=== PATIENT | female | born 1965 | race Caucasian/White ===

== ENCOUNTER 2016-08-25 10:09 | Emergency (ER) | payer OTHER ==
[2016-08-25] MEDS ORDERED: SODIUM CHLORIDE 1,000 ML IV STA ×2 (10:32→12:07)
[2016-08-25 10:33] VITALS: BP 133/96; PULSE 77; TEMP 98.2; BMI 27.0
[2016-08-25 11:19] LABS: BASOPHIL 0.6 % (0-2.0); EOSINOPHIL 1.2 % (0-4.5); MCH 26.2 pg (25.7-33.7); MCHC 32.4 g/dl (32.0-36.0); MEAN CELL VOLUME 80.8 fl (80-96); MEAN PLT VOLUME 7.2 fl (7.5-11.1); NEUTROPHILS 70.3 % (42.8-82.8); PLATELET COUNT 367 K/MM3 (134-434); WHITE BLOOD COUNT 6.6 K/mm3 (4.0-10.0)
[2016-08-25 11:43] LABS: ALBUMIN 4.3 g/dl (3.4-5.0); ANION GAP 11 (8-16); CALCIUM 9.5 mg/dL (8.5-10.1); CO2 23 mmol/L (21-32); CREATININE 0.7 mg/dL (0.55-1.02); GLUCOSE,RANDOM 91 mg/dL (74-106); SGOT/AST 30 U/L (15-37); SGPT/ALT 34 U/L (12-78)
[2016-08-25 11:45] LABS: ALK PHOS 113 U/L (45-117); BILIRUBIN,TOTAL 0.3 mg/dL (0.2-1.0); TOT PROT 8.2 g/dl (6.4-8.2)
[2016-08-25 11:56] LABS: URINE APPEARANCE CLEAR; URINE BILIRUBIN NEGATIVE (NEGATIVE); URINE BLOOD NEGATIVE (NEGATIVE); URINE COLOR STRAW; URINE GLUCOSE (UA) NEGATIVE (NEGATIVE); URINE KETONE NEGATIVE (NEGATIVE); URINE NITRITE NEGATIVE (NEGATIVE); URINE PROTEIN NEGATIVE (NEGATIVE); URINE UROBILINOGEN NEGATIVE E.U./dl (0.2-1.0)
--- NOTE | 2016-08-25 11:57 | PDOC ---
[id number] 08/25/16 10:22 08/25/16 10:22 08/25/16 10:22 08/25/16 10:22 08/25/16 10:22 - Physical Exam Comments: 08/25/16 11:57 The patient was examined by YADIEL Jang under my direct supervision. I personally evaluated the patient. I concur with the above findings and the plan of care. ED Treatment Course - LABORATORY CBC & Chemistry Diagram: 08/25/16 11:03 08/25/16 11:03 - ADDITIONAL ORDERS Additional order review: Laboratory Results 08/25/16 08/25/16 11:03 11:03 Sodium 131 L Potassium 4.5 Chloride 97 L Carbon Dioxide 23 Anion Gap 11 BUN 4 L D Creatinine 0.7 Creat Clearance w eGFR > 60 Random Glucose 91 Calcium 9.5 Magnesium 2.1 Total Bilirubin 0.3 D AST 30 D ALT 34 D Alkaline Phosphatase 113 Total Protein 8.2 Albumin 4.3 08/25/16 11:03 RBC 4.74 MCV 80.8 MCHC 32.4 RDW 14.0 MPV 7.2 L Neutrophils % 70.3 Lymphocytes % 21.5 Monocytes % 6.4 Eosinophils % 1.2 D Basophils % 0.6 - Medications Given in the ED: ED Medications Discontinued Medications Generic Name Dose Route Start Last Admin Trade Name Crowq PRN Reason Stop Dose Admin Sodium Chloride 1,000 mls @ 1,000 mls/hr 08/25/16 10:32 08/25/16 10:35 Normal Saline - IV 08/25/16 11:31 1,000 mls/hr [facility] STA Administration *DC/Admit/Observation/Transfer Diagnosis at time of Disposition: Hyponatremia, Alcohol use, Bronchitis - Discharge Dispostion Disposition: HOME Condition at time of disposition: Good - Prescriptions Prescriptions: Azithromycin [Zithromax Tri-Lavon (3 DAYS) -] 500 mg PO DAILY #3 tablet - Referrals Referrals: Emanuel Delgado MD [Primary Care Provider] - - Patient Instructions Printed Discharge Instructions: DI for Acute Bronchitis, DI for Hyponatremia Additional Instructions: Take Antibiotics as prescribed and follow-up with your PCP and orthopedist as scheduled. Please drink plenty of fluids and avoid alcohol use as this may cause worsening of symptoms.
[2016-08-25 11:59] LABS: URINE LEUK ESTERASE 1+ (NEGATIVE)
[2016-08-25 12:01] LABS: URINE HYALINE CAST 1 /lpf; URINE MUCUS RARE; URINE RBC 1 /hpf (0-3); URINE WBC 2 /hpf (3-5)
--- NOTE | 2016-08-25 12:32 | PDOC ---
History of Present Illness - General Chief Complaint: Weakness Stated Complaint: WEAKNESS/DIZZY/POSSIBLE FEVER Time Seen by Provider: 08/25/16 10:14 History Source: Patient Exam Limitations: No Limitations - History of Present Illness Initial Comments: 08/25/16 11:25 50-year-old female presents the ED with complaints of decreased appetite, generalized weakness, dry cough, and chills for the past 2 days. Patient denies urinary complaints, difficulty breathing, shortness of breath, chest pain, sore throat, headache, abdominal pain, nausea , dysuria, or diarrhea. Patient states history of UTI last year but has no urinary complaints. Patient had a total knee replacement done on July 26 that went uneventful went to rehabilitation and was sent home on the . Patient states since the surgery has not been able to bend leg and feels very anxious to the fact that she may need a second surgery. Patient receives home physical therapy presently and feels it's not helping. Patient's eye redness at the surgical site, increased pain to surgical site but states swelling has not decreased since rehabilitation. Patient has a follow-up appointment next week with her orthopedist. patient has been taking oxycodonefor pain with good relief. Timing/Duration: constant Associated Symptoms: reports: cough, fever/chills, loss of appetite, malaise, weakness Past History - Past Medical History Allergies/Adverse Reactions: Allergies Allergy/AdvReac Type Severity Reaction Status Date / Time No Known Allergies Allergy Verified 08/25/16 10:33 Home Medications: Ambulatory Orders Fluoxetine HCl [Prozac] 10 mg PO DAILY 02/11/15 Azithromycin [Zithromax Tri-Lavon (3 DAYS) -] 500 mg PO DAILY #3 tablet 08/25/16 Clonazepam [KlonoPIN] 0.5 mg PO DAILY 08/25/16 Psychiatric Problems: Yes (Anxiety, BIPOLAR) - Reproductive History LMP Normal: Yes Is Patient Now?: No - Immunization History Immunization Up to Date: Yes - Psycho/Social/Smoking Cessation Hx Anxiety: No Suicidal Ideation: No Smoking Status: Yes Smoking History: Current every day smoker Number of Cigarettes Smoked Daily: 3 Information on smoking cessation initiated: No Hx Alcohol Use: Yes (Beer) Drug/Substance Use Hx: Yes Substance Use Type: Alcohol (daily) Patient Lives Alone: No Lives with/in: children Review of Systems - Review of Systems Able to Perform ROS?: Yes Constitutional: Yes: Chills, Loss of Appetite, Malaise HEENTM: No: Symptoms Reported Respiratory: Yes: Cough. No: Orthopnea, SOB with Exertion, Wheezing, Productive cough Cardiac (ROS): No: Symptoms Reported ABD/GI: Yes: Poor Appetite, Poor Fluid Intake. No: Nausea : No: Symptoms Reported Musculoskeletal: Yes: Joint Pain (mild left knee) Integumentary: No: Symptoms Reported Neurological: No: Symptoms reported Endocrine: No: Symptoms Reported *Physical Exam - Vital Signs Last Vital Signs Temp Pulse Resp BP Pulse Ox 98.2 F 77 18 133/96 99 08/25/16 10:22 08/25/16 10:22 08/25/16 10:22 08/25/16 10:22 08/25/16 10:22 - Physical Exam General Appearance: Yes: Nourished, Appropriately Dressed, Intoxicated. No: Apparent Distress, Disheveled HEENT: positive: EOMI, [place]. negative: Pale Conjunctivae Neck: positive: Supple Respiratory/Chest: positive: Lungs Clear, Normal Breath Sounds. negative: Respiratory Distress, Accessory Muscle Use Cardiovascular: positive: Regular Rhythm, Regular Rate. negative: Murmur Gastrointestinal/Abdominal: positive: Soft. negative: Tenderness Extremity: positive: Normal Capillary Refill, Normal Inspection, Swelling (mild over left knee incision). negative: Normal Range of Motion (unable to flex left knee), Tender, Pedal Edema, Erythema Integumentary: positive: Normal Color, Warm, Moist Neurologic: negative: Normal Mood/Affect (anxious and crying) ED Treatment Course - LABORATORY CBC & Chemistry Diagram: 08/25/16 11:03 08/25/16 11:03 - ADDITIONAL ORDERS Additional order review: Laboratory Results 08/25/16 08/25/16 08/25/16 11:42 11:03 11:03 Sodium Potassium Chloride Carbon Dioxide Anion Gap BUN Creatinine Creat Clearance w eGFR Random Glucose Lactic Acid 1.976 Calcium Magnesium 2.1 Total Bilirubin AST ALT Alkaline Phosphatase Total Protein Albumin Urine Color Straw Urine Appearance Clear Urine pH 5.0 Ur Specific [place] 1.009 Urine Protein Negative Urine Glucose (UA) Negative Urine Ketones Negative Urine Blood Negative Urine Nitrite Negative Urine Bilirubin Negative Urine Urobilinogen Negative Ur Leukocyte Esterase 1+ H Urine RBC 1 Urine WBC 2 Ur Epithelial Cells Rare Hyaline Casts 1 Urine Mucus Rare Urine HCG, Qual 08/25/16 08/25/16 11:03 10:32 Sodium 131 L Potassium 4.5 Chloride 97 L Carbon Dioxide 23 Anion Gap 11 BUN 4 L D Creatinine 0.7 Creat Clearance w eGFR > 60 Random Glucose 91 Lactic Acid Calcium 9.5 Magnesium Total Bilirubin 0.3 D AST 30 D ALT 34 D Alkaline Phosphatase 113 Total Protein 8.2 Albumin 4.3 Urine Color Urine Appearance Urine pH Ur Specific [place] Urine Protein Urine Glucose (UA) Urine Ketones Urine Blood Urine Nitrite Urine Bilirubin Urine Urobilinogen Ur Leukocyte Esterase Urine RBC Urine WBC Ur Epithelial Cells Hyaline Casts Urine Mucus Urine HCG, Qual Negative 08/25/16 11:03 Influenza Types A,B Antigen (DAVION) - Final Nasopharyngeal Swab - Final 08/25/16 11:03 RBC 4.74 MCV 80.8 MCHC 32.4 RDW 14.0 MPV 7.2 L Neutrophils % 70.3 Lymphocytes % 21.5 Monocytes % 6.4 Eosinophils % 1.2 D Basophils % 0.6 - RADIOLOGY Radiology Studies Ordered: Category Date Time Status CHEST X-RAY PORTABLE* [RAD] Stat Radiology 08/25/16 10:31 Ordered KNEE 3 POS-LEFT [RAD] Stat Radiology 08/25/16 10:32 Ordered - Medications Given in the ED: ED Medications Discontinued Medications Generic Name Dose Route Start Last Admin Trade Name Freq PRN Reason Stop Dose Admin Sodium Chloride 1,000 mls @ 1,000 mls/hr 08/25/16 10:32 08/25/16 10:35 Normal Saline - IV 08/25/16 11:31 [facility]000 [facility]ls[facility]hr [facility] Administration Medical Decision Making - Medical Decision Making 08/25/16 11:35 Patient here with complaints of cough, increased weakness, decreased appetite, and chills with a past 2 days. Patient history of bipolar and anxiety with recent total knee replacement last month which she's been taking oxycodone for an receiving physical therapy at home. Patient also states heavy alcohol use and arrives here intoxicated. Patient ordered for septic workup including influenza testing, magnesium level, and knee x-ray. 08/25/16 12:37 Laboratory Tests 08/25/16 08/25/16 08/25/16 10:32 11:03 11:03 WBC 6.6 D Hgb 12.4 D Hct 38.3 Plt Count 367 Neutrophils % 70.3 Sodium 131 L Potassium 4.5 Chloride 97 L Carbon Dioxide 23 Anion Gap 11 BUN 4 L D Creatinine 0.7 Random Glucose 91 Lactic Acid Calcium 9.5 Magnesium AST 30 D ALT 34 D Urine Ketones Urine Nitrite Ur Leukocyte Esterase Urine WBC Urine HCG, Qual Negative 08/25/16 08/25/16 08/25/16 11:03 11:03 11:42 WBC Hgb Hct Plt Count Neutrophils % Sodium Potassium Chloride Carbon Dioxide Anion Gap BUN Creatinine Random Glucose Lactic Acid 1.976 Calcium Magnesium 2.1 AST ALT Urine Ketones Negative Urine Nitrite Negative Ur Leukocyte Esterase 1+ H Urine WBC 2 Urine HCG, Qual influenza swab negative. Patient pending x-ray. Patient ordered a second bag of IV fluids. 08/25/16 13:13 X-ray shows no joint joint effusion with no signs of fracture or loosening. Chest x-ray shows weakens patient with no atelectasis changes at the left base. Since patient is a daily smoker I will send patient home with a prescription for azithromycin to treat for bronchitis. patient otherwise needs to follow-up with orthopedist next week as scheduled. Patient also recommended to avoid alcohol and opiate intake. Patient also recommended drink plenty of fluids . *DC/Admit/Observation/Transfer Diagnosis at time of Disposition: Hyponatremia, Alcohol use, Bronchitis - Discharge Dispostion Disposition: HOME Condition at time of disposition: Good - Referrals Referrals: Emanuel Delgado MD [Primary Care Provider] - - Patient Instructions Printed Discharge Instructions: DI for Hyponatremia, DI for Acute Bronchitis Additional Instructions: Take Antibiotics as prescribed and follow-up with your PCP and orthopedist as scheduled. Please drink plenty of fluids and avoid alcohol use as this may cause worsening of symptoms.
== END 2016-08-25 14:18 | disposition home or self-care (01) ==
LOC: JER 10:09
PROC: 3E0337Z Introduction of Electrolytic and Water Balance Substance into Peripheral Vein, Percutaneous Approach (ICD-10-PCS; principal; 2016-08-25)
DX: J20.9 Acute bronchitis, unspecified (principal); E87.1 Hypo-osmolality and hyponatremia; F10.10 Alcohol abuse, uncomplicated; Z96.652 Presence of left artificial knee joint; F17.210 Nicotine dependence, cigarettes, uncomplicated
CPT/HCPCS: 36415; 71010-TC; 73562-TC-LT; 80053; 81003; 81015; 83605; 83735; 84703; 85025; 87040; 87086; 87804; 96360; 96361; 99282-25

== ENCOUNTER 2018-10-03 13:56 | Observation (INO) | payer OTHER ==
--- NOTE | 2018-10-03 15:28 | PDOC ---
History of Present Illness - General Chief Complaint: Migraine Headache Stated Complaint: Migraine Headache History Source: Patient Exam Limitations: No Limitations - History of Present Illness Initial Comments: 10/03/18 15:25 52 yo F with a hx of bipolar disorder (on seroquel, clonipine), gastritis, and migraines (last headache childhood) presents to the emergency department with headache located in the frontal sinus and behind eyes since Saturday. Per the patient, she states it was sudden onset, worse headache of her life initially, 04/30, without radiation, and had no associative symptoms with negligible relief with motrin. She is uncertain if this is similar quality to her migraines in the past. Per the patient, she said it got better , and then worsened today. Denies the following: fever, chills, neck stiffness, trauma , visual changes, ears/nose/throat pain, chest pain, SOB, nausea, vomiting, hematuria, dysuria, abdominal pain, leg pain/swelling, and hematochezia. Shx: None Meds: Seroquel, clonipine, and prilosec Allergies: NKDA Social: Denies tobacco, alcohol, and substance abuse. Past History - Past Medical History Allergies/Adverse Reactions: Allergies Allergy/AdvReac Type Severity Reaction Status Date / Time No Known Allergies Allergy Verified 10/03/18 14:17 Home Medications: Ambulatory Orders Fluoxetine HCl [Prozac] 10 mg PO DAILY 02/11/15 clonazePAM [KlonoPIN] 0.5 mg PO DAILY 08/25/16 COPD: No Psychiatric Problems: Yes (Anxiety, BIPOLAR) - Immunization History Immunization Up to Date: Yes - Suicide/Smoking/Psychosocial Hx Smoking Status: Yes Smoking History: Never smoked Number of Cigarettes Smoked Daily: 3 Hx Alcohol Use: No Drug/Substance Use Hx: No Substance Use Type: Alcohol (daily) Review of Systems - Review of Systems Able to Perform ROS?: Yes Is the patient limited Tajik proficient: No Constitutional: No: Chills, Diaphoresis, Fever, Weakness HEENTM: No: Eye Pain, Ear Pain, Nose Pain, Throat Pain Respiratory: No: Cough, Shortness of Breath Cardiac (ROS): No: Chest Pain, Lightheadedness, Palpitations, Syncope, Chest Tightness ABD/GI: No: Constipated, Diarrhea, Nausea, Rectal Bleeding, Vomiting, Tarry Stools : No: Burning, Dysuria, Hematuria Musculoskeletal: No: Back Pain, Joint Pain, Neck Pain Integumentary: No: Bruising, Erythema, Rash Neurological: Yes: Headache. No: Numbness, Tingling, Tremors, Ataxia, Dizziness Psychiatric: No: Stressors Endocrine: No: Unexplained Weight Gain Hematologic/Lymphatic: No: Anemia *Physical Exam - Vital Signs Last Vital Signs Temp Pulse Resp BP Pulse Ox 97.9 F 65 17 159/102 H 98 10/03/18 14:17 10/03/18 14:17 10/03/18 14:17 10/03/18 14:17 10/03/18 14:17 - Physical Exam General Appearance: Yes: Nourished, Appropriately Dressed, Obese. No: Apparent Distress HEENT: positive: EOMI, [place], Normal Voice, Symmetrical, Pharynx Normal, Hearing Grossly Normal. negative: Pale Conjunctivae, Scleral Icterus (R), Scleral Icterus (L), Muffled/Hoarse voice, Pharyngeal Erythema, Tonsillar Exudate, Tonsillar Erythema, Excessive drooling Neck: positive: Trachea midline, Supple. negative: Tender, Lymphadenopathy (R) , Lymphadenopathy (L), Tender lateral, Tender midline Respiratory/Chest: positive: Lungs Clear, Normal Breath Sounds. negative: Chest Tender, Respiratory Distress, Accessory Muscle Use, Crackles, Rales, Rhonchi, Stridor, Wheezing, Hyperresonant Cardiovascular: positive: Regular Rhythm, Regular Rate, S1, S2. negative: Systolic Murmur Gastrointestinal/Abdominal: positive: Normal Bowel Sounds, Flat, Soft. negative : Tender, Distended, Guarding, Rebound, Tenderness Lymphatic: negative: Adenopathy Musculoskeletal: positive: Normal Inspection. negative: CVA Tenderness, Vertebral Tenderness Extremity: positive: Normal Capillary Refill, Normal Inspection, Normal Range of Motion. negative: Tender Integumentary: positive: Normal Color, Dry, Warm Neurologic: positive: electroencephalograph technician II-XII NML intact, Fully Oriented, Alert, Normal Mood/ Affect, Normal Response, Motor Strength 5/5, Sensory Deficit (decreased sensation on the right L2 distribution). negative: Facial Droop, Numbness, Finger to Nose Moderate Sedation - Procedure Monitoring Vital Signs: Procedure Monitoring Vital Signs Temperature 97.9 F 10/03/18 14:17 Pulse Rate 65 10/03/18 14:17 Respiratory Rate 17 10/03/18 14:17 Blood Pressure 159/102 H 10/03/18 14:17 O2 Sat by Pulse Oximetry (%) 98 10/03/18 14:17 ED Treatment Course - LABORATORY CBC & Chemistry Diagram: 10/04/18 06:20 10/04/18 05:20 Medical Decision Making - Medical Decision Making 10/03/18 20:22 52 yo F with a hx of bipolar disorder (on seroquel, clonipine), gastritis, and migraines (last headache childhood) presents to the emergency department with headache located in the frontal sinus and behind eyes since Saturday. In addition, complains of weakness. Initial vitals: Initial Vital Signs Temp Pulse Resp BP Pulse Ox 97.9 F 65 17 159/102 H 98 10/03/18 14:17 10/03/18 14:17 10/03/18 14:17 10/03/18 14:17 10/03/18 14:17 Work up": ddx: headache (migraine vs tension vs cluster vs intracranial mass) vs electrolyte abnormality Laboratory Tests 10/03/18 10/03/18 10/03/18 16:37 16:37 16:37 WBC 7.8 RBC 4.83 Hgb 14.0 Hct 41.2 MCV 85.4 MCH 29.0 D MCHC 34.0 RDW 14.5 Plt Count 303 MPV 8.2 D Absolute Neuts (auto) 4.8 Neutrophils % 61.1 Lymphocytes % 27.6 D Monocytes % 8.8 Eosinophils % 1.5 Basophils % 1.0 Nucleated RBC % 0 Sodium 125 L Potassium 4.4 Chloride 94 L Carbon Dioxide 23 Anion Gap 9 BUN 6 L Creatinine 0.8 Creat Clearance w eGFR 75.62 Random Glucose 94 Calcium 9.5 Total Bilirubin 0.6 AST 145 H ALT 118 H Alkaline Phosphatase 127 H Total Protein 8.4 H Albumin 4.4 Urine Color Colorless Urine Appearance Clear Urine pH 6.0 Ur Specific [place] 1.002 L Urine Protein Negative Urine Glucose (UA) Negative Urine Ketones Trace H Urine Blood Negative Urine Nitrite Negative Urine Bilirubin Negative Urine Urobilinogen Negative Ur Leukocyte Esterase Negative Urine HCG, Qual Negative CT head was negative for acute intracranial process. Patient less likely has subarachnoid hemorrhage given atypical features. labs show hyponatremia. lfts are elevated with elevated ast, alt, and alk phos without elevation in bilirubin (patient denies liver disease, but recently taking an antibiotic without knowing which). UA negative. Patient will be admitted for hyponatremia. Dispo: Admit *DC/Admit/Observation/Transfer Diagnosis at time of Disposition: Hyponatremia - Referrals - Patient Instructions - Post Discharge Activity
[2018-10-03] MEDS ORDERED: METOCLOPRAMIDE HCL INJECTION 10 MG/2 ML VIAL IVPB ONE (16:53)
[2018-10-03] MEDS ORDERED: SODIUM CHLORIDE 1,000 ML IV STA (16:53)
[2018-10-03] MEDS ORDERED: ACETAMINOPHEN 1000 MG/100 ML VIAL (NON FORMULARY) IVPB ONE (16:53)
[2018-10-03] MEDS ORDERED: METOCLOPRAMIDE HCL INJECTION 10 MG/2 ML VIAL ONE (17:09)
[2018-10-03] MEDS ORDERED: ACETAMINOPHEN INJECTION 100 ML IVPB ONE (17:10)
[2018-10-03 17:16] LABS: EOS % 1.5 % (0-4.5); HEMATOCRIT 41.2 % (32.4-45.2); LYMPH % 27.6 % (8-40); MEAN CELL VOLUME 85.4 fl (80-96); MEAN PLT VOLUME 8.2 fl (7.5-11.1); MONO % 8.8 % (3.8-10.2); NEUT % 61.1 % (42.8-82.8); PLATELET COUNT 303 K/MM3 (134-434); RBC 4.83 M/mm3 (3.60-5.2); RDW 14.5 % (11.6-15.6); WHITE BLOOD COUNT 7.8 K/mm3 (4.0-10.0)
[2018-10-03 17:22] LABS: URINE APPEARANCE CLEAR; URINE BILIRUBIN NEGATIVE (<2.0 mg/dL); URINE COLOR COLORLESS; URINE GLUCOSE (UA) NEGATIVE (NEGATIVE); URINE KETONE TRACE (NEGATIVE); URINE LEUK ESTERASE NEGATIVE (NEGATIVE); URINE NITRITE NEGATIVE (NEGATIVE); URINE PROTEIN NEGATIVE (NEGATIVE); URINE UROBILINOGEN NEGATIVE mg/dL (0.2-1.0)
[2018-10-03 17:23] LABS: HCG,QUALITATIVE URINE Negative
[2018-10-03 17:42] LABS: ALBUMIN 4.4 g/dl (3.4-5.0); ALK PHOS 127 U/L (45-117); ANION GAP 9 MMOL/L (8-16); BILIRUBIN,TOTAL 0.6 mg/dL (0.2-1); BLOOD UREA NITROGEN 6 mg/dL (7-18); CALCIUM 9.5 mg/dL (8.5-10.1); CHLORIDE 94 mmol/L (98-107); CO2 23 mmol/L (21-32); CREATININE 0.8 mg/dL (0.55-1.3); GLUCOSE,RANDOM 94 mg/dL (74-106); POTASSIUM 4.4 mmol/L (3.5-5.1); SGOT/AST 145 U/L (15-37); SGPT/ALT 118 U/L (13-61); SODIUM 125 mmol/L (136-145); TOT PROT 8.4 g/dl (6.4-8.2)
--- NOTE | 2018-10-03 21:32 | HP ---
CHIEF COMPLAINT: headache PCP: Delgado HISTORY OF PRESENT ILLNESS: 52 yo woman complaining of headache since this past Wed. Head is diffuse and also worse behind he eyes. Denied any photophobia, or phonophobia. she denied any nausea or vomiting. No fevers or chills reported. Patient denied starting any new medications recently. Head CT in ER was negative for any acute insults. ER course was notable for: (1) head CT (2) cxr (3) Recent Travel: no PAST MEDICAL HISTORY: bipolar disorder (on seroquel, clonipine), gastritis, and migraines PAST SURGICAL HISTORY: no Social History: Smoking: no Alcohol:no Drugs: no Family History: none Allergies No Known Allergies Allergy (Verified 10/03/18 14:17) HOME MEDICATIONS: Home Medications Medication Instructions Recorded Fluoxetine HCl [Prozac] 10 mg PO DAILY 02/11/15 Azithromycin [Zithromax Tri-Lavon (3 500 mg PO DAILY #3 tablet 08/25/16 DAYS) -] clonazePAM [KlonoPIN] 0.5 mg PO DAILY 08/25/16 REVIEW OF SYSTEMS CONSTITUTIONAL: Absent: fever, chills, diaphoresis, loss of appetite, weight change present- , generalized weakness, malaise HEENT: Absent: rhinorrhea, nasal congestion, throat pain, throat swelling, difficulty swallowing, mouth swelling, ear pain, eye pain, visual changes CARDIOVASCULAR: Absent: chest pain, syncope, palpitations, irregular heart rate, lightheadedness , peripheral edema RESPIRATORY: Absent: cough, shortness of breath, dyspnea with exertion, orthopnea, wheezing, stridor, hemoptysis GASTROINTESTINAL: Absent: abdominal pain, abdominal distension, nausea, vomiting, diarrhea, constipation, melena, hematochezia GENITOURINARY: Absent: dysuria, frequency, urgency, hesitancy, hematuria, flank pain, genital pain MUSCULOSKELETAL: Absent: myalgia, arthralgia, joint swelling, back pain, neck pain SKIN: Absent: rash, itching, pallor HEMATOLOGIC/IMMUNOLOGIC: Absent: easy bleeding, easy bruising, lymphadenopathy, frequent infections ENDOCRINE: Absent: unexplained weight gain, unexplained weight loss, heat intolerance, cold intolerance NEUROLOGIC: Absent: , focal weakness or paresthesias, dizziness, unsteady gait, seizure, mental status changes, bladder or bowel incontinence present- headache PSYCHIATRIC: Absent: anxiety, depression, suicidal or homicidal ideation, hallucinations. PHYSICAL EXAMINATION Vital Signs - 24 hr 10/03/18 14:17 Temperature 97.9 F Pulse Rate 65 Respiratory 17 Rate Blood Pressure 159/102 H O2 Sat by Pulse 98 Oximetry (%) GENERAL: Awake, alert, and fully oriented, in no acute distress. HEAD: Normal with no signs of trauma. EYES: Pupils equal, round and reactive to light, extraocular movements intact, sclera anicteric, conjunctiva clear. No lid lag. EARS, NOSE, THROAT: Ears normal, nares patent, oropharynx clear without exudates. Moist mucous membranes. NECK: Normal range of motion, supple without lymphadenopathy, JVD, or masses. LUNGS: Breath sounds equal, clear to auscultation bilaterally. No wheezes, and no crackles. No accessory muscle use. HEART: Regular rate and rhythm, normal S1 and S2 without murmur, rub or gallop. ABDOMEN: Soft, nontender, not distended, normoactive bowel sounds, no guarding, no rebound, no masses. MUSCULOSKELETAL: Normal range of motion at all joints. No bony deformities or tenderness. No CVA tenderness. UPPER EXTREMITIES: 2+ pulses, warm, well-perfused. No cyanosis. No clubbing. No peripheral edema. LOWER EXTREMITIES: 2+ pulses, warm, well-perfused. No calf tenderness. No peripheral edema. NEUROLOGICAL: Cranial nerves II-XII intact. Normal speech. Normal gait. PSYCHIATRIC: Cooperative. Good eye contact. Appropriate mood and affect. SKIN: Warm, dry, normal turgor, no rashes or lesions noted, normal capillary refill. Laboratory Results - last 24 hr 10/03/18 10/03/18 10/03/18 16:37 16:37 16:37 WBC 7.8 RBC 4.83 Hgb 14.0 Hct 41.2 MCV 85.4 MCH 29.0 D MCHC 34.0 RDW 14.5 Plt Count 303 MPV 8.2 D Absolute Neuts (auto) 4.8 Neutrophils % 61.1 Lymphocytes % 27.6 D Monocytes % 8.8 Eosinophils % 1.5 Basophils % 1.0 Nucleated RBC % 0 Sodium 125 L Potassium 4.4 Chloride 94 L Carbon Dioxide 23 Anion Gap 9 BUN 6 L Creatinine 0.8 Creat Clearance w eGFR 75.62 Random Glucose 94 Calcium 9.5 Total Bilirubin 0.6 AST 145 H ALT 118 H Alkaline Phosphatase 127 H Total Protein 8.4 H Albumin 4.4 Urine Color Colorless Urine Appearance Clear Urine pH 6.0 Ur Specific [place] 1.002 L Urine Protein Negative Urine Glucose (UA) Negative Urine Ketones Trace H Urine Blood Negative Urine Nitrite Negative Urine Bilirubin Negative Urine Urobilinogen Negative Ur Leukocyte Esterase Negative Urine HCG, Qual Negative Head CT, cxr reviewed ASSESSMENT/PLAN: #Headache - likely related to patient's hyponatremia. Differential diagnosis includes migraine however less characteristic. -observation -naproxen 500mg po prn if headache #Hyponatremia - patient appears to be euvolemic. Possibly SIADH, may be related to psych meds that patient is taking. R/o Hypothryoidism. -observe -bed rest -fall precations -send urine osm -serum osm -tsh -hold seroquel for now (might cause SIADH) -monitor Na level -gentle IV fluid hydration- NS #Bipolar/depression? -hold seroquel temporarily -c/w fluoxetine -psych eval for med optimization #DVT ppx -he[facility]i sc Visit type - Emergency Visit Emergency Visit: Yes ED Registration Date: 10/03/18 Care time: The patient presented to the Emergency Department on the above date and was hospitalized for further evaluation of their emergent condition. - New Patient This patient is new to me today: Yes Date on this admission: 10/03/18 - Critical Care Critical Care patient: No
[2018-10-03] MEDS ORDERED: HEPARIN NA (PORCINE) 5,000 UNITS/ML 1ML VIAL ONE (22:22)
[2018-10-03] MEDS: SODIUM CHLORIDE 1,000 ML IV SCH (22:34)
[2018-10-03] MEDS: HEPARIN NA (PORCINE) 5,000 UNITS/ML 1ML VIAL SQ SCH (22:34)
--- NOTE | 2018-10-03 22:37 | PDOC ---
Attending Attestation - Resident Resident Name: Olman Medina - ED Attending Attestation I have performed the following: I have examined & evaluated the patient, The case was reviewed & discussed with the resident, I agree w/resident's findings & plan, Exceptions are as noted - HPI HPI: 10/03/18 22:39 The patient is a 52 year old female with a PMH of bipolar disorder (on seroquel , clonipine), gastritis, chronic back pain, and migraines in childhood who presents to the ER with a headache for the past 3 days. Patient describes the headache as frontal, gradual onset, with associated pressure behind her eyes, that is 10/10 in severity and worsened over the last days. She has been taking aleve at home for her headache with no improvement. Patient states this is the worst headache of her life. Patient also endorses left arm numbness that resolved at some point today and generalized weakness. Patient denies any visual changes. t reports having significant stressors at home. The patient denies chest pain, shortness of breath, and dizziness. Denies fever, chills, nausea, vomit, diarrhea and constipation. Denies dysuria, frequency, urgency and hematuria. Allergies: NKA Past surgical history: None reported. Social history: No reported alcohol, drugs or cigarette use. PCP: Dr. Emanuel Delgado - Physicial Exam PE: 10/03/18 18:20 GENERAL: Awake, alert, and fully oriented, in no acute distress watching TV, very comfortable appearing HEAD: No signs of trauma EYES: PERRLA, EOMI, sclera anicteric, conjunctiva clear ENT: Hearing grossly normal, nares patent, oropharynx clear without exudates. Moist mucosa NECK: Normal ROM, supple, no lymphadenopathy, JVD, or masses. No meningismus LUNGS: Breath sounds equal, clear to auscultation bilaterally. No wheezes, and no crackles HEART: Regular rate and rhythm, normal S1 and S2, no murmurs, rubs or gallops ABDOMEN: Soft, nontender, normoactive bowel sounds. No guarding, no rebound. No masses EXTREMITIES: Normal range of motion, no edema. No erythema, or tenderness BACK: No midline spinal tenderness in cervical/thoracic/lumbar region NEUROLOGICAL: Slurred speech (pt states she notices no change in her speech), cranial nerves intact, negative pronator drift, 5/5 strength in all 4 extremities, normal sensation to light touch in all 4 extremities, normal cerebellar exam, normal gait, normal tone SKIN: Warm, Dry, normal turgor, no rashes or lesions noted. - Medical Decision Making 10/03/18 18:43 52yo F presents to the ED with gradually worsening bifrontal headache and resolved numbness to UE. BP elevated, but remaining vitals wnl. Exam wnl, pt comfortable appearing with no meningismus and neuro intact. Possible atypical migraine vs tension ahumada vs CVA but much less likely. Unlikely SAH as ahumada of gradual onset, pt is well appearing, and neuro intact. CTH neg for infarction. Plan to treat ahumada, so far labs with hyponatremia to 125. Anticipate obs admission. Heart Score/ECG Review #1 10/03/18 22:51 EKG read and interpreted by me, NSR, rate 63, normal axis and intervals. No NELDA
[2018-10-03] MEDS ORDERED: ACETAMINOPHEN 325 MG TABLET (FP) PO PRN (22:42)
[2018-10-03] MEDS ORDERED: ACETAMINOPHEN 325 MG TABLET (FP) ONE (22:50)
[2018-10-03] MEDS ORDERED: NAPROXEN 500 MG TABLET (FP) PO PRN (23:09)
[2018-10-04] MEDS: SODIUM CHLORIDE 1,000 ML IV SCH (03:54)
[2018-10-04] MEDS ORDERED: NAPROXEN 500 MG TABLET (FP) PO ONE (04:01)
[2018-10-04 04:36] VITALS: BMI 32.9
[2018-10-04 07:40] LABS: ALBUMIN 4.2 g/dl (3.4-5.0); ALK PHOS 114 U/L (45-117); ANION GAP 8 MMOL/L (8-16); BILIRUBIN,TOTAL 0.6 mg/dL (0.2-1); BLOOD UREA NITROGEN 7 mg/dL (7-18); CALCIUM 8.5 mg/dL (8.5-10.1); CHLORIDE 105 mmol/L (98-107); CO2 22 mmol/L (21-32); CREATININE 0.8 mg/dL (0.55-1.3); GLUCOSE,RANDOM 86 mg/dL (74-106); POTASSIUM 3.9 mmol/L (3.5-5.1); SGOT/AST 128 U/L (15-37); SGPT/ALT 103 U/L (13-61); SODIUM 136 mmol/L (136-145); TOT PROT 7.6 g/dl (6.4-8.2)
[2018-10-04] MEDS ORDERED: PT OWN MED DRAWER 7, Y5N ONE (09:37)
[2018-10-04] MEDS: HEPARIN NA (PORCINE) 5,000 UNITS/ML 1ML VIAL SQ SCH (09:38)
[2018-10-04] MEDS ORDERED: clonazePAM 0.5 MG TABLET PO SCH (10:00)
[2018-10-04] MEDS ORDERED: FLUoxetine HCL 10 MG CAPSULE (FP) PO SCH (10:00)
[2018-10-04 10:41] LABS: HEMATOCRIT 36.9 % (32.4-45.2); HEMOGLOBIN 12.8 GM/dL (10.7-15.3); MCHC 34.6 g/dl (32.0-36.0); MEAN CELL VOLUME 86.5 fl (80-96); MEAN PLT VOLUME 8.6 fl (7.5-11.1); PLATELET COUNT 261 K/MM3 (134-434); RBC 4.27 M/mm3 (3.60-5.2); RDW 14.5 % (11.6-15.6)
--- NOTE | 2018-10-04 11:17 | DS ---
Physical Examination Vital Signs: Vital Signs Temperature 97.5 F L 10/04/18 05:00 Pulse Rate 58 L 10/04/18 05:00 Respiratory Rate 20 10/04/18 05:00 Blood Pressure 140/61 10/04/18 05:00 O2 Sat by Pulse Oximetry (%) 100 10/04/18 04:00 Findings/Remarks: sitting in chair -- watching tv feels well chart reviewed comfortable Constitutional: Yes: No Distress Eyes: Yes: Conjunctiva Clear Neck: Yes: Supple Cardiovascular: Yes: Regular Rate and Rhythm Respiratory: Yes: CTA Bilaterally Gastrointestinal: Yes: Soft Edema: No Neurological: Yes: Alert Psychiatric: Yes: Alert Labs: CBC, BMP 10/04/18 06:20 10/04/18 05:20 Discharge Summary Reason For Visit: HYPONATREMIA Hospital Course: 52 yo F with a hx of bipolar disorder (on seroquel, clonipine), gastritis, and migraines (last headache childhood) presents to the emergency department with headache located in the frontal sinus and behind eyes since Saturday. ct head -ve sodium normalized AST/ALT - Elevated u/s --fatty liver EKG- ok overall stable will d/c home I also added hepatitis panel-- pt do not have any clinical indications of acute hepatitis though-- likely due to fatty infiltration. Office records -- reviewed Not compliant pt Advised to come for f/u on regular basis f/u in office in 2 weeks Also advised to f/u with psych as advised Condition: Stable - Instructions Disposition: HOME - Home Medications Comprehensive Discharge Medication List: Ambulatory Orders Fluoxetine HCl [Prozac] 10 mg PO DAILY 02/11/15 clonazePAM [KlonoPIN] 0.5 mg PO DAILY 08/25/16
--- NOTE | 2018-10-04 13:15 | EKG ---
Test Reason : Blood Pressure : / mmHG Vent. Rate : 063 BPM Atrial Rate : 063 BPM P-R Int : 166 ms QRS Dur : 080 ms QT Int : 428 ms P-R-T Axes : 075 050 049 degrees QTc Int : 437 ms NORMAL SINUS RHYTHM POSSIBLE LEFT ATRIAL ENLARGEMENT BORDERLINE ECG WHEN COMPARED WITH ECG OF 28-SEP-1998 18:23, NO SIGNIFICANT CHANGE WAS FOUND Confirmed by MD ADDIS, RADHA ([id number]) on 10/04/2018 1:15:20 PM Referred By: Confirmed By:RADHA MANCINI MD
[2018-10-04 13:34] VITALS: BP 151/89; PULSE 66; TEMP 97.4
[2018-10-05 06:37] LABS: HEP.C VIRUS AB <0.1 s/co ratio (0.0-0.9)
== END 2018-10-04 14:41 | disposition home or self-care (01) ==
LOC: JER 13:56 → JERBED 18:46 → J7W 10-04 03:20
PROVIDERS: ADMIT Internal Medicine; ATTEND Internal Medicine
PROC: 3E033NZ Introduction of Analgesics, Hypnotics, Sedatives into Peripheral Vein, Percutaneous Approach (ICD-10-PCS; principal; 2018-10-03)
PROC: 3E0337Z Introduction of Electrolytic and Water Balance Substance into Peripheral Vein, Percutaneous Approach (ICD-10-PCS; 2018-10-03)
PROC: 3E033GC Introduction of Other Therapeutic Substance into Peripheral Vein, Percutaneous Approach (ICD-10-PCS; 2018-10-03)
PROC: 3E013GC Introduction of Other Therapeutic Substance into Subcutaneous Tissue, Percutaneous Approach (ICD-10-PCS; 2018-10-03)
DX: E87.1 Hypo-osmolality and hyponatremia (principal); R51 Headache; F31.9 Bipolar disorder, unspecified; F17.210 Nicotine dependence, cigarettes, uncomplicated; R74.0 Nonspecific elevation of levels of transaminase and lactic acid dehydrogenase [LDH]
CPT/HCPCS: 36415; 70450-TC; 71045-TC-FY; 76705-TC; 80053; 80074; 80307; 81003; 83930; 83935; 84300; 84443; 84703; 85025; 85027; 87086; 93005; 93010; 96361; 96372; 96374; 96375; 99284-25; G0378; J0131; J1644; J7030

== ENCOUNTER 2021-01-29 10:59 | Emergency (ER) | payer OTHER ==
[2021-01-29 11:11] VITALS: BP 128/95; PULSE 75; TEMP 99.2; BMI 33.0
== END 2021-01-29 13:11 | disposition home or self-care (01) ==
LOC: JER 10:59
DX: R50.9 Fever, unspecified (principal); Z11.52 Encounter for screening for COVID-19
CPT/HCPCS: 71046-TC-FY; 99284-25; C9803; U0003; U0005